=== PATIENT | male | born 1995 | race Hispanic/Latino ===

== ENCOUNTER 2017-07-09 21:26 | Emergency (ER) | payer SELFPAY ==
[~2017-07-09] VITALS: Ht 188 cm; Wt 122.3 kg
[2017-07-09 21:29] VITALS: BP 128/83; PULSE 79; RESP 14; O2SAT 100
--- NOTE | 2017-07-09 21:39 | ED.REPORT ---
HPI-Rash / Abscess Date of Service Jul 09, 2017 ED Provider: Francesco Fernando DO A 21 year old male with no pertinent medical history presents to the ED complaining of a possible allergic reaction. The pt noticed a red, itching rash on his back yesterday after working. The rash has persisted since. He denies swelling of the tongue or throat, and has not taken any medication to treat his symptoms. Nursing Notes Stated Complaint: POSSIBLE ALLERGIC REACTION Chief Complaint: Skin Rash/Abscess Nursing Notes Reviewed: Yes Allergies: Coded Allergies: No Known Allergies (Unverified , 07/09/17) General Time Seen by MD: 21:39 Chief Complaint Other (Possible allergic reaction) Hx Obtained From: Patient Arrived By: Walk-in Onset Occurred: 1 day ago Symptom Duration: Since onset Recent Healthcare: No recent doctor visit, No recent hospitalization Similar Sx Previous: No Past Medical History Past Medical History none reported Past Surgical History none reported Smoking History Unknown if Ever Smoker Ambulatory Status Independent Review of Systems Review of Systems Note: denies swelling of the tongue or throat Respiratory: Denies: Non-productive cough, Shortness of breath Cardiovascular: Denies: Chest pain GI: Denies: Abdominal pain, Nausea, Vomiting Musculoskeletal: Denies: Back pain, Neck pain Skin: Reports Itching, Reports Rash Complete sys rev & neg: except as marked. Physical Exam Initial Vital Signs Vital Signs (First) Date Time Temp Pulse Resp B/P Pulse Ox O2 Delivery O2 Flow Rate FiO2 07/09/17 21:29 37 79 14 128/83 100 Room Air Initial VS: Reviewed General/Constitutional: Awake, Alert Skin: Color NL, Warm, Dry hives on back Head / Eyes: Atraumatic, Normocephalic, PERRL, EOMI ENT: Atraumatic, Airway patent, Mucous membranes moist no uvular edema no swelling of tongue or throat Respiratory / Chest: Atraumatic, Breath sounds NL, Breath sounds = bilat, No respiratory distress Cardiovascular: Heart rate NL, Regular rhythm, Heart sounds NL Upper Extremity / MS: Atraumatic, Full range of motion Lower Extremity / Pelvis / MS: Atraumatic, Full range of motion Neurologic: Oriented X3, Speech NL, No motor deficits, No sensory deficits Neck: Atraumatic, Supple, Full range of motion Abdomen: Atraumatic, Soft, Non-tender Back: Atraumatic, Full range of motion Psychiatric: Affect NL, Mood NL Interpretation & Diagnostics Pulse Oximetry Interpretation Pulse Oximetry Interpretation: 100% on room air Pulse Oximetry: Pulse Ox normal Re-Eval/Medical Decision Med Decision/Clinical Course Healthy 21-year-old male broke out in hives while at work. He is not sure what he was exposed to. No angioedema. Lungs were clear. His Medicaid with Benadryl and steroids. He looked and felt better. A placement 3 day course of prednisone and have follow-up primary care. Re-Evaluation/Progress : Time of Eval: 21:39 Patient Status: Condition improved Re-Evaluation/Progress Note: Pt informed of the diagnosis and plan for discharge during the initial interview. The pt understands and agrees with the plan. All questions are addressed at this time. Counseled Regarding: Diagnosis, Need for follow-up, When/why to return to ED Discharge & Departure Impression: Primary Impression: Allergic reaction Encounter type: initial encounter Qualified Code: T78.40XA - Allergy, unspecified, initial encounter Disposition: Home Discharge Condition All VS Reviewed: Yes Condition: Stable Patient Instructions: General Allergic Reaction (ED) Additional Instructions: Your evaluation was reassuring and there does not appear to be an acute cause for your symptoms. Take the Benadryl as directed. Take Prednisone daily for three days. Call your primary care physician or the referral physician to arrange a follow up appointment in the next several days for further evaluation. Return to the emergency department if you develop any new or worsening symptoms. Referrals: Valentin Wilkins Attestation Portions of this note were transcribed by Kendall Andersen. I, Dr. Fernando personally performed the history, physical exam and medical decision-making; I reviewed and confirmed the accuracy of the information in the transcribed note. copies to: Valentin Wilkins Todd P DO Jul 09, 2017 21:39 KENDALL ANDERSEN Jul 09, 2017 22:46
[2017-07-09] MEDS ORDERED: Dexamethasone 10 mg/mL Inj IM ONE (22:20)
[2017-07-09] MEDS ORDERED: diphenhydrAMINE 50 mg Capsule PO ONE (22:20)
[2017-07-09 23:12] VITALS: BP 135/83; PULSE 70; RESP 16; O2SAT 98
== END 2017-07-09 23:13 | disposition home or self-care (01) ==
LOC: SED 21:26
DX: R21 Rash and other nonspecific skin eruption (principal); T78.40XA Allergy, unspecified, initial encounter; X58.XXXA Exposure to other specified factors, initial encounter; Y93.89 Activity, other specified; Y99.0 Civilian activity done for income or pay; Y92.59 Other trade areas as the place of occurrence of the external cause